=== PATIENT | male | born 1975 | race Caucasian/White ===

== ENCOUNTER 2017-12-05 07:53 | Emergency (ER) | payer BC, MEDICAID ==
[2017-12-05] MEDS ORDERED: ASPIRIN 325 MG TABLET PO ONE (08:20)
--- NOTE | 2017-12-05 08:31 | Emergency Department Record ---
History of Present Illness - General Chief Complaint: Shortness of breath Stated Complaint: SOB Time Seen by Provider: 12/05/17 08:16 Source: Patient Mode of Arrival: EMS Limitations: No limitations - History of Present Illness Initial Comments: The patient is here due to dyspnea that occurred in the shower this AM. He was getting ready to go to his PCP's office for a stress test at 8am when the ALLEN started. He did get mildly lightheaded while in the shower but had no chest pain or discomfort. The symptoms did wax and wane so the patient called 911. After the ambulance got there he felt better and initially refused. As they were driving away he changed his mind and asked to be taken to the [facility]. The patient was there yesterday for the same exact thing and refused hospital admission because he did not want to stay in the hospital and get the flu. EMS stated because we were closer they were not able to go to [place] per Protocol. Presently the patient is symptoms free and denies any pain, discomfort or SOB. MD Complaint: Shortness of breath Onset/Timin -: Days(s) - Related Data Home Medications Medication Instructions Recorded Confirmed Last Taken Lisinopril 10 mg PO DAILY 12/05/17 12/05/17 12/05/17 06:30 Loratadine 10 mg 12/05/17 12/05/17 06:30 Allergies Allergy/AdvReac Type Severity Reaction Status Date / Time No Known Drug Allergies Allergy Verified 12/05/17 08:45 Travel Screening - Travel/Exposure Within Last 30 Days Have you traveled within the last 30 days?: No - Travel/Exposure Within Last Year Have you traveled outside the [place] in the last year?: No - Additonal Travel Details Have you been exposed to anyone with a communicable illness?: No Review of Systems Constitutional: Denies: Chills, Fever Eyes: Denies: Eye discharge ENT: Denies: Congestion Respiratory: Denies: Cough, Dyspnea Past Medical History - SOCIAL HISTORY Smoking Status: Current every day smoker - RESPIRATORY Hx Respiratory Disorders: No - CARDIOVASCULAR Hx Cardio Disorders: Yes Hx Hypertension: Yes Comment:: tariq-glenna in september 2017 - NEURO Hx Neuro Disorders: No - GI Hx GI Disorders: No - Hx Genitourinary Disorders: No - ENDOCRINE Hx Endocrine Disorders: No - MUSCULOSKELETAL Hx Musculoskeletal Disorders: Yes Hx Back Injury: Yes (oct 01 2016) - PSYCH Hx Psych Problems: No - HEMATOLOGY/ONCOLOGY Hx Hematology/Oncology Disorders: No Family Medical History Any Significant Family History?: Yes Hx Cancer: Father, Mother Hx Diabetes: Father, Mother Hx Heart Disease: Father, Mother, Grandparents Hx Kidney Disease: Grandparents Physical Exam - General General Appearance: Alert, Oriented x3, Cooperative, No acute distress - Head Head exam: Atraumatic, Normocephalic, Normal inspection - Eye Eye exam: Normal appearance, PERRL - ENT Throat exam: Normal inspection. negative: Tonsillar erythema, Tonsillar exudate - Neck Neck exam: Normal inspection, Full ROM. negative: Tenderness - Respiratory Respiratory exam: Normal lung sounds bilaterally. negative: Respiratory distress - Cardiovascular Cardiovascular Exam: Regular rate, Normal rhythm, Normal heart sounds - GI/Abdominal GI/Abdominal exam: Soft, Normal bowel sounds. negative: Tenderness - Extremities Extremities exam: Normal inspection, Full ROM, Normal capillary refill. negative: Tenderness - Neurological Neurological exam: Alert, Normal gait. negative: Abnormal gait, Motor sensory deficit Course Vital Signs 12/05/17 08:06 Temperature 98.2 F Pulse Rate 95 H Respiratory 18 Rate Blood Pressure 151/92 Pulse Ox 99 - Reevaluation(s) Reevaluation #1: Records from [facility] were reviewed: The patient had neg cardiac enzymes, a normal EKG, neg D-dimer and a normal CXR. 12/05/17 08:45 Reevaluation #2: The patient is doing very well at this time. He is pain free and has no ALLEN. I did consult with Dr. Sabillon ([facility]) and he is willing to do a EST on the patient later this morning or early this afternoon. 12/05/17 09:35 Reevaluation #3: The patient went to 9 METS on his EST and it was read as normal by Dr. Sabillon. He did have ALLEN but no CP or EKG changes. 12/05/17 11:45 Reevaluation #4: I did explain to the patient that his workup is normal and that the EST was WNL' s. Even so because there is no clear cause for the dyspnea I still did recommend hospital admission to [facility] for a cardiac echo and consult with the EP team. The patient is refusing that plan. He understands the risks of refusing are that he could go home and have an AK, stroke, be disabled and even . The patient understands and accepts the risks and presently has proper decision making capacity. He is instructed to return to the ER at ANY time for recheck or any worsening or new symptoms. 12/05/17 12:06 Medical Decision Making - Data Complexity MDM Data: EKG Ordered and/or Reviewed - Lab Data Result diagrams: 12/05/17 08:20 12/05/17 08:20 - EKG Data -: EKG Interpreted by Me EKG: No Acute Changes, Normal EKG Disposition Disposition: Discharge Clinical Impression: Dyspnea Qualifiers: Dyspnea type: unspecified Qualified Code(s): R06.00 - Dyspnea, unspecified Disposition: Home, Self-Care Condition: (2) Stable Instructions: Dyspnea (ED) Additional Instructions: Please see Dr. Zhang and Dr. Raphael NAVARRO. Please continue your regular medicines and return to the ER for any worsening symptoms. Forms: Patient Portal Access Time of Disposition: 12:06 Quality - Quality Measures Quality Measures: N/A - Blood Pressure Screening View Details: Yes Does Patient Have Any of the Following: No Blood Pressure Classification: Hypertensive Reading Systolic Measurement: 151 Diastolic Measurement: 92 Screening for High Blood Pressure: < First Hypertensive BP, F/U Documented > [ G8950] First Hypertensive Follow-up Interventions: Referral to alternative/primary care provider.
[2017-12-05 08:37] LABS: BASO % 0.2 % (0-6); EOS % 2.1 % (0-6); GRAN % 60.7 % (47-80); HEMATOCRIT 45.8 % (42.0-52.0); HEMOGLOBIN 15.7 gm/dl (14.0-18.0); LYMPH % 28.9 % (16-45); MEAN CELL VOLUME 85.6 fl (81-97); MEAN CORPUSCULAR HEMOGLOBIN 29.3 pg (27-33); MEAN CORPUSCULAR HGB CONC 34.3 g/dl (32-36); MEAN PLATELET VOLUME 9.9 fl (7.4-10.4); MONO % 8.1 % (0-9); PLATELET COUNT 247 K/uL (130-400); RED BLOOD COUNT 5.35 M/uL (4.40-5.70); RED CELL DISTRIBUTION WIDTH 13.3 % (11.5-14.5); WHITE BLOOD COUNT W/O DIFF 5.8 K/uL (4.2-12.2)
[2017-12-05 08:54] LABS: CKMB 1.5 ng/mL (<6.73)
[2017-12-05 08:56] LABS: BLOOD UREA NITROGEN 12 mg/dL (6-20); CREATINE PHOSPHOKINASE 103 U/L (39-308); CREATININE 0.8 mg/dL (0.7-1.2); EST GLOMERULAR FILTRATION RATE > 60 mL/min; GLUCOSE,RANDOM 118 mg/dL (74-109)
[2017-12-05 09:01] LABS: THYROID STIMULATING HORMONE 1.38 uIU/mL (0.270-4.20)
[2017-12-05 11:37] LABS: CKMB 1.4 ng/mL (<6.73)
--- NOTE | 2017-12-05 15:51 | Stress Test Report ---
DATE OF TEST: 12/05/17 ORDERING PHYSICIAN: MARQUISE NEGRETE E.D. PHYSICIAN. INDICATION: DYSPNEA. BASELINE EKG: Sinus rhythm. Nonspecific ST/T wave changes. NH interval 149 milliseconds. QRS 105 milliseconds. QT corrected 402 milliseconds. Resting heart rate 74. Resting blood pressure 133/86. DESCRIPTION: Patient exercised on a motorized treadmill for 7 minutes and 46 seconds achieving a peak heart rate of 179 beats per minute, which was greater than 85% of the maximum age-predicted heart rate. Peak blood pressure was 176/ 90. Continuous ECG monitoring revealed no EKG changes that met diagnostic criteria for ischemia. There was significant artifact during most of the exercise tracings but immediate post recovery showed no ST/T wave changes suggestive of ischemia. There were no significant ventricular or atrial arrhythmias identified. The patient's only complain during exercise was dyspnea. He had no chest discomfort. IMPRESSION: 1. NEGATIVE EXERCISE STRESS TEST TO APPROXIMATELY 9 METS. 2. NO CHEST DISCOMFORT. 3. POSITIVE FOR SHORTNESS OF BREATH LIMITING EXERCISE. JOB NUMBER: [id number] MTDD
== END 2017-12-05 12:20 | disposition home or self-care (01) ==
LOC: ER 07:53
DX: R06.00 Dyspnea, unspecified (principal); R42 Dizziness and giddiness; I10 Essential (primary) hypertension; I48.91 Unspecified atrial fibrillation; F17.210 Nicotine dependence, cigarettes, uncomplicated
CPT/HCPCS: 80048; 82550; 82553; 84443; 84484; 85025; 93005; 93010; 93017; 99284

== ENCOUNTER 2017-12-06 09:12 | Observation (INO) | payer MEDICAID ==
--- NOTE | 2017-12-06 09:28 | Emergency Department Record ---
History of Present Illness - General Chief Complaint: Shortness of breath Stated Complaint: ALLEN Time Seen by Provider: 12/06/17 09:23 Source: Patient Mode of Arrival: EMS Limitations: No limitations - History of Present Illness Initial Comments: The patient is here due to intermittent SOB for 3-4 days. The patient states he was just sitting at home at 7:30 am and suddenly felt SOB. He did have very mild palpitations at the time and very mild chest discomfort. The patient has been to the ER the last 2 days for the same thing. He was here at [facility] yesterday and did have a EST to 9 mets that was neg. He has had a hx of Afib in the past and this is similar to that episode. MD Complaint: Shortness of breath Onset/Timin -: Days(s) Associated Symptoms: Denies other symptoms Treatments Prior to Arrival: None - Related Data Home Oxygen Therapy: No Home Medications Medication Instructions Recorded Confirmed Last Taken Trazodone HCl 50 mg PO QHS 12/06/17 12/06/17 12/05/17 Allergies Allergy/AdvReac Type Severity Reaction Status Date / Time No Known Drug Allergies Allergy Verified 12/06/17 09:16 Travel Screening - Travel/Exposure Within Last 30 Days Have you traveled within the last 30 days?: No Review of Systems Constitutional: Denies: Chills, Fever Eyes: Denies: Eye discharge ENT: Denies: Congestion Respiratory: Denies: Cough, Dyspnea Past Medical History - SOCIAL HISTORY Smoking Status: Current every day smoker Alcohol Use: Occasional Alcohol Use Comment: 1-2 beers/night Drug Use: None - RESPIRATORY Hx Respiratory Disorders: No - CARDIOVASCULAR Hx Cardio Disorders: Yes Hx Hypertension: Yes Comment:: tariq-fib in september 2017 - NEURO Hx Neuro Disorders: No - GI Hx GI Disorders: No - Hx Genitourinary Disorders: No - ENDOCRINE Hx Endocrine Disorders: No - MUSCULOSKELETAL Hx Musculoskeletal Disorders: Yes Hx Back Injury: Yes (oct 01 2016) - PSYCH Hx Psych Problems: No - HEMATOLOGY/ONCOLOGY Hx Hematology/Oncology Disorders: No Family Medical History Any Significant Family History?: Yes Hx Cancer: Father, Mother Hx Diabetes: Father, Mother Hx Heart Disease: Father, Mother, Grandparents Hx Kidney Disease: Grandparents Physical Exam - General General Appearance: Alert, Oriented x3, Cooperative, No acute distress - Head Head exam: Atraumatic, Normocephalic, Normal inspection - Eye Eye exam: Normal appearance, PERRL - ENT Throat exam: Normal inspection. negative: Tonsillar erythema, Tonsillar exudate - Neck Neck exam: Normal inspection, Full ROM. negative: Tenderness - Respiratory Respiratory exam: Normal lung sounds bilaterally. negative: Respiratory distress - Cardiovascular Cardiovascular Exam: Regular rate, Normal rhythm, Normal heart sounds - GI/Abdominal GI/Abdominal exam: Soft, Normal bowel sounds. negative: Tenderness - Extremities Extremities exam: Normal inspection, Full ROM, Normal capillary refill. negative: Tenderness - Neurological Neurological exam: Alert, Normal gait. negative: Abnormal gait, Motor sensory deficit Course Vital Signs 12/06/17 09:13 Temperature 97.9 F Pulse Rate 84 Respiratory 18 Rate Blood Pressure 149/104 Pulse Ox 98 - Reevaluation(s) Reevaluation #1: The patient is doing very well at this time. He has had no further episodes of SOB or any CP. Due to the frequency of these episodes I do think the patient will need to be monitored overnight. I did discuss the case with Dr. Hood at [facility] and he does agree with the plan but believes the patient can stay here at [facility]. I then did discuss the case with Dr. Royal and he does agree to the admission. 12/06/17 11:18 Medical Decision Making - Data Complexity MDM Data: Labs Ordered and/or Reviewed, X-Ray Ordered and/or Reviewed, EKG Ordered and/or Reviewed - Lab Data Result diagrams: 12/06/17 09:31 12/06/17 09:31 - EKG Data -: EKG Interpreted by Al EKG: No Acute Changes, Unchanged From Previous - Radiology Data Radiology results: Report reviewed (CXR: Neg.) Disposition Disposition: Admit Clinical Impression: Dyspnea Qualifiers: Dyspnea type: unspecified Qualified Code(s): R06.00 - Dyspnea, unspecified Disposition: Still a Patient at [facility] Decision to Admit: Admit from ER Decision to Admit Date: 12/06/17 Decision to Admit Time: 11:20 Accepting Physician: Lele Time Discussed w/Accepting Physician: 11:20 Condition: (2) Stable Time of Disposition: 11:20 Quality - Quality Measures Quality Measures: N/A - Blood Pressure Screening View Details: Yes Does Patient Have Any of the Following: Active Dx of HTN Blood Pressure Classification: Hypertensive Reading Systolic Measurement: 142 Diastolic Measurement: 98 Screening for High Blood Pressure: Patient Exclusion, Hx of HTN [G9744]
[2017-12-06 09:36] LABS: BASO % 0.3 % (0-6); EOS % 1.8 % (0-6); GRAN % 58.6 % (47-80); HEMATOCRIT 47.6 % (42.0-52.0); HEMOGLOBIN 16.5 gm/dl (14.0-18.0); LYMPH % 32.4 % (16-45); MEAN CELL VOLUME 85.5 fl (81-97); MEAN CORPUSCULAR HEMOGLOBIN 29.6 pg (27-33); MEAN CORPUSCULAR HGB CONC 34.7 g/dl (32-36); MEAN PLATELET VOLUME 9.2 fl (7.4-10.4); MONO % 6.9 % (0-9); PLATELET COUNT 287 K/uL (130-400); RED BLOOD COUNT 5.57 M/uL (4.40-5.70); RED CELL DISTRIBUTION WIDTH 13.5 % (11.5-14.5)
[2017-12-06 10:02] LABS: INR 1.1; PARTIAL THROMBOPLASTIN TIME 26.4 SECONDS (24.5-39.1); PROTHROMBIN TIME (PATIENT) 11.4 SECONDS (9.5-12.1)
[2017-12-06 10:09] LABS: BLOOD UREA NITROGEN 18 mg/dL (6-20); CREATININE 0.7 mg/dL (0.7-1.2); EST GLOMERULAR FILTRATION RATE > 60 mL/min
[2017-12-06 10:11] LABS: GLUCOSE,RANDOM 106 mg/dL (74-109)
[2017-12-06 10:14] LABS: CREATINE PHOSPHOKINASE 98 U/L (39-308)
[2017-12-06 10:16] LABS: CKMB 1.5 ng/mL (<6.73)
[2017-12-06] MEDS ORDERED: ASPIRIN 325 MG TABLET PO ONE (11:43)
[2017-12-06] MEDS ORDERED: HYDROCODONE/APAP 5/325MG TABLET PO SCH (14:23)
[2017-12-06] MEDS ORDERED: CYCLOBENZAPRINE HCL 5 MG PO SCH (14:23)
--- NOTE | 2017-12-06 14:31 | History & Physical ---
History of Present Illness - Date of Service Date of Service for History & Physical: 12/06/17 - History of Present Illness Admitting Diagnosis: 1. Acute Dyspnea with Palpitations. History of Present Illness: Mr. Pedersen is a 42 y/o male here with vague complaint of chest discomfort, shortness of breath and palpitations. The patient has presented to [facility] ED twice in the past 2 days with the same complaint and once to [facility]. On evaluation in the ED yesterday the patient had stress test which was negative and all las were within normal limits. The patient has a history of atrial fibrillation and was apparently on Lopressor but is not on any beta- blockers at this time and has not been in A fib. The patient reports that most of his symptoms have been in the morning but then resolve spontaneously. The patient has been seen by a manager [employer] and there is plans for a holter monitor to be placed. On evaluation of the patient this afternoon he is asking if he could go outside for a smoke. I informed the patient that is against hospital policy to smoke on hospital property in addition to it not being good for his health. He is adamant about smoking while being admitted. He has no symptoms at this time and there are no changes on monitor. Travel Screening - Travel/Exposure Within Last 30 Days Have you traveled within the last 30 days?: No - Travel/Exposure Within Last Year Have you traveled outside the [place] in the last year?: No - Additonal Travel Details Have you been exposed to anyone with a communicable illness?: No - Travel Symptoms Symptom Screening: None Review of Systems Constitutional: Denies: Chills, Fever Eyes: Denies: Eye discharge ENT: Denies: Congestion Respiratory: Denies: Cough, Dyspnea Past Medical History - SOCIAL HISTORY Smoking Status: Current every day smoker Alcohol Use: Occasional Alcohol Use Comment: 1-2 beers/night Drug Use: None - RESPIRATORY Hx Respiratory Disorders: No - CARDIOVASCULAR Hx Cardio Disorders: Yes Hx Hypertension: Yes Comment:: a-fib in september 2017 - NEURO Hx Neuro Disorders: No - GI Hx GI Disorders: No - Hx Genitourinary Disorders: No - ENDOCRINE Hx Endocrine Disorders: No - MUSCULOSKELETAL Hx Musculoskeletal Disorders: Yes Hx Back Injury: Yes (oct 01 2016) - PSYCH Hx Psych Problems: No - HEMATOLOGY/ONCOLOGY Hx Hematology/Oncology Disorders: No Family Medical History Any Significant Family History?: Yes Hx Cancer: Father, Mother Hx Diabetes: Father, Mother Hx Heart Disease: Father, Mother, Grandparents Hx Kidney Disease: Grandparents H&P Meds/Allergies - Allergies Allergies: Allergies Allergy/AdvReac Type Severity Reaction Status Date / Time No Known Drug Allergies Allergy Verified 12/06/17 09:16 - Home Medications Home Medications Medication Instructions Recorded Confirmed Last Taken Trazodone HCl 50 mg PO QHS 12/06/17 12/06/17 12/05/17 - Active Medications Active Medications: Current Medications Hydrocodone Bitart/Acetaminophen ([place] 5mg/325mg) each PO ASDIR [facility] Aspirin (Ecotrin (Ec)) 325 mg PO DAILY [facility] Lisinopril (Zestril) 10 mg PO DAILY [facility] Non-Formulary Medication (Cyclobenzaprine Hcl [Cyclobenzaprine Hcl]) 5 mg PO ASDIR [facility] Non-Formulary Medication (Loratadine [Loratadine]) 10 mg PO DAILY [facility] Non-Formulary Medication (Omeprazole [Omeprazole]) 20 mg PO DAILY [facility] Trazodone HCl (Desyrel) 50 mg PO QHS [facility] Physical Exam - Vital Signs Vital Signs: Vital Signs - Last 24 Hrs Temp Pulse Pulse Resp BP BP Pulse Ox 12/06/17 12:21 98 F 84 20 148/89 98 12/06/17 12:13 98.2 F 91 H 20 142/98 97 - General General Appearance: Alert, Oriented x3, Cooperative, No acute distress Limitations: No limitations - Head Head exam: Atraumatic, Normocephalic, Normal inspection - Eye Eye exam: Normal appearance, PERRL - ENT Throat exam: Normal inspection. negative: Tonsillar erythema, Tonsillar exudate - Neck Neck exam: Normal inspection, Full ROM. negative: Tenderness - Respiratory Respiratory exam: Normal lung sounds bilaterally. negative: Respiratory distress - Cardiovascular Cardiovascular Exam: Regular rate, Normal rhythm, Normal heart sounds - GI/Abdominal GI/Abdominal exam: Soft, Normal bowel sounds. negative: Tenderness - Extremities Extremities exam: Normal inspection, Full ROM, Normal capillary refill. negative: Tenderness - Neurological Neurological exam: Alert, Normal gait. negative: Abnormal gait, Motor sensory deficit Results - Labs Result Diagrams: 12/06/17 09:31 12/06/17 09:31 VTE H&P Assessment - Risk for VTE Risk for VTE: No Risk Level: Very Low Risk Assessment Date: 12/06/17 Risk Assessment Time: 20:49 VTE Orders Placed or Will Be Placed: No VTE Reason for No Prophylaxis: Not Indicated Plan - Detailed Diagnosis and Plan (1) Dyspnea Status: Acute Qualifiers: Dyspnea type: unspecified Qualified Code(s): R06.00 - Dyspnea, unspecified Base Code: R06.00 - DYSPNEA, UNSPECIFIED Comment: 12/06 - Intermittent dyspnea, no evidence of cardiac arrhythmia, no chest pain. Symptoms likely due to anxiety. - ECG negative for acute changes, troponins negative, stress test negative, CXR negative. - Home holter monitor arranged. Patient advised to return to ED if there is chest pain, shortness of breath or palpitations. Patient to return device within 24 hours. - Outpatient cardiology workup is recommended. - Strongly advised the patient against smoking. (2) Anxiety Status: Acute Base Code: F41.9 - ANXIETY DISORDER, UNSPECIFIED Comment: 12/06 - patient has anxiety and has recently been started on Vistaril by PCP. - Disposition D/C home with holter monitor. To return in 24 hours. Patient wants to smoke while in hospital but we have advised that it is against hospital policy to do so. He would prefer to go home with the monitor.
--- NOTE | 2017-12-06 21:04 | Discharge Summary ---
Providers Discharge Summary Date: 12/06/17 Date of admission: 12/06/17 12:11 Attending physician: GREGORY FAUST Primary care physician: HORTENCIA RIBEIRO M.D. Physical Exam - Vital Signs Vital Signs: Vital Signs - Last 24 Hrs Temp Pulse Pulse Resp BP BP Pulse Ox 12/06/17 12:21 98 F 84 20 148/89 98 12/06/17 12:13 98.2 F 91 H 20 142/98 97 - General General Appearance: Alert, Oriented x3, Cooperative, No acute distress Limitations: No limitations - Head Head exam: Atraumatic, Normocephalic, Normal inspection - Eye Eye exam: Normal appearance, PERRL - ENT Throat exam: Normal inspection. negative: Tonsillar erythema, Tonsillar exudate - Neck Neck exam: Normal inspection, Full ROM. negative: Tenderness - Respiratory Respiratory exam: Normal lung sounds bilaterally. negative: Respiratory distress - Cardiovascular Cardiovascular Exam: Regular rate, Normal rhythm, Normal heart sounds - GI/Abdominal GI/Abdominal exam: Soft, Normal bowel sounds. negative: Tenderness - Extremities Extremities exam: Normal inspection, Full ROM, Normal capillary refill. negative: Tenderness - Neurological Neurological exam: Alert, Normal gait. negative: Abnormal gait, Motor sensory deficit Hospitalization - Hospitalization Admission Diagnosis: 1. Acute Dyspnea with Palpitations. - Problem List/Discharge Diagnosis (1) Dyspnea Status: Acute Discharge Diagnosis: Dyspnea type: unspecified Qualified Code(s): R06.00 - Dyspnea, unspecified Base Code: R06.00 - DYSPNEA, UNSPECIFIED Comment: / - Intermittent dyspnea, no evidence of cardiac arrhythmia, no chest pain. Symptoms likely due to anxiety. - ECG negative for acute changes, troponins negative, stress test negative, CXR negative. - Home holter monitor arranged. Patient advised to return to ED if there is chest pain, shortness of breath or palpitations. Patient to return device within 24 hours. - Outpatient cardiology workup is recommended. - Strongly advised the patient against smoking. (2) Anxiety Status: Acute Base Code: F41.9 - ANXIETY DISORDER, UNSPECIFIED Comment: 3/ - patient has anxiety and has recently been started on Vistaril by PCP. - Disposition D/C home with holter monitor. To return in 24 hours. Patient wants to smoke while in hospital but we have advised that it is against hospital policy to do so. He would prefer to go home with the monitor. - Hospitalization Course Disposition: Home, Self-Care Hospital Course: Mr. Pedersen is a 42 y/o male here with vague complaint of chest discomfort, shortness of breath and palpitations. The patient has presented to [facility] ED twice in the past 2 days with the same complaint and once to [facility]. On evaluation in the ED yesterday the patient had stress test which was negative and all las were within normal limits. The patient has a history of atrial fibrillation and was apparently on Lopressor but is not on any beta- blockers at this time and has not been in A fib. The patient reports that most of his symptoms have been in the morning but then resolve spontaneously. The patient has been seen by a [employer] consultant and there is plans for a holter monitor to be placed. On evaluation of the patient this afternoon he is asking if he could go outside for a smoke. I informed the patient that is against hospital policy to smoke on hospital property in addition to it not being good for his health. He is adamant about smoking while being admitted. He has no symptoms at this time and there are no changes on monitor. Procedures: Cardiology Procedures 12/06/17 13:36 Holter Monitor NOW Condition at Discharge: (2) Stable Discharge Medications - Discharge Medications Home Medications: Ambulatory Orders Cyclobenzaprine HCl 5 mg PO ASDIR #90 12/25/16 [Last Taken 12/03/17] Hydrocodone/Acetaminophen [Hydrocodon-Acetaminophen 5-325] 10 mg PO ASDIR #30 [Last Taken 12/01/17] Omeprazole 20 mg PO DAILY #30 12/25/16 [Last Taken 12/05/17 06:30] Lisinopril 10 mg PO DAILY 12/05/17 [Last Taken 12/06/17] Loratadine 10 mg PO DAILY 12/05/17 [Last Taken 12/05/17 06:30] Trazodone HCl 50 mg PO QHS 12/06/17 [Last Taken 12/05/17] Discharge Plan - Discharge Instructions Activity at Discharge: Resume Usual Activities As Tolerated Diet at Discharge: Regular Diet Instructions: Dyspnea (ED) Additional Instructions: Return to drop off Holter monitor 12/07/17 as instructed by respiratory Quality Measures - Quality Measures Quality Measures: Documentation of Current Medications in Medical Record, Screening for High Blood Pressure and F/U Documented - Current Medications Quality Measure: Measure #130: Documentation of Current Medications Documentation of Current Medications: <Current Medications Documented/Reviewed> [G8427] - Blood Pressure Screening Quality Measure: Screening for High Blood Pressure and Follow-Up Documented Does Patient Have Any of the Following: No Blood Pressure Classification: Hypertensive Reading Systolic Measurement: 142 Diastolic Measurement: 98 Screening for High Blood Pressure: < Pre-Hypertensive BP, F/U Documented > [ G8950] Pre-Hypertensive Follow-up Interventions: Follow-up with rescreen every year., Lifestyle modifications. Lifestyle Modification: Weight Reduction, Dietary Sodium Restriction - Elder Abuse Suspicion Index EASI Reference Information: Anna LONGORIA, Nilson C, Janette D, Alfonzo Mendoza.Development and validation of a tool to assist physicians identification of elder abuse: The Elder Abuse Suspicion Index (EASI ). Journal of Elder Abuse and Neglect, 2008; 20 (3): 276-300.
[2017-12-06] MEDS ORDERED: TRAZODONE 50 MG TABLET PO SCH (22:00)
[2017-12-07] MEDS ORDERED: LORATADINE 10 MG PO SCH (10:00)
[2017-12-07] MEDS ORDERED: LISINOPRIL 10 MG TABLET PO SCH (10:00)
[2017-12-07] MEDS ORDERED: ASPIRIN 325 MG TAB ENTERIC-COATED PO SCH (10:00)
[2017-12-07] MEDS ORDERED: Non-Formulary MISC (Omeprazole [Omeprazole] 20 MG) PO SCH (10:00)
--- NOTE | 2017-12-08 07:14 | RADIOLOGY REPORT ---
EXAM: CHEST, TWO VIEWS HISTORY: DIFFICULTY BREATHING. TECHNIQUE: Frontal and lateral views of the chest performed. FINDINGS: The heart size is normal. The lung waterman are clear. The osseous structures are normal. IMPRESSION: NEGATIVE CHEST EXAMINATION. JOB NUMBER: [id number] MTDD
--- NOTE | 2017-12-09 11:30 | Holter Monitor Report ---
DATE: 12/06/2017 A 3-channel Holter monitor was performed for 24 hours. During this period of monitoring, 3% of the time the patient did have a heart rate greater than 120 beats per minute albeit the fact that it was sinus tachycardia. He had no pauses exceeding 2 seconds. He had very occasional ventricular ectopic beats, less than 10. He had less than 19 supraventricular beats. He had no episodes of SVT. There was no significant ST or T depression. The patient's diary was correlated with his Holter monitor. At 7:02 a.m. on Friday, his heart rate was 133 beats per minute, clearly sinus tachycardia. The patient states that he woke up at 6:50 a.m., felt nothing. At 8:10, he walked up the stairs and felt a little short of breath but this was 1 hour after he had sinus tachycardia. At 9:48 on Friday, he did have a heart rate again of 145 beats per minute with sinus tachycardia. According to his diary, he went for a walk around the block at 9:40 but at 9:50 he was sitting in his chair a little out of breathing, could not stop coughing, and at that time he was noted to be in sinus tachycardia. He was still somewhat tachycardic at 10:03 a.m. at a heart rate of 121 beats per minute. By 10:08, he still had a heart rate of 150 beats per minute being sinus tachycardia. Whether or not he was coughing or in any distress at that time is not well elucidated on the patient's diary. Therefore, the patient does have periods of sinus tachycardia. Some correlate with periods of shortness of breath. Others there is no correlation at all. No other malignant arrhythmias and no long pauses were appreciated. ENE
== END 2017-12-06 14:30 | disposition home or self-care (01) ==
LOC: ER 09:12 → MEDSURG 12:11
PROVIDERS: ADMIT Internal Medicine; ATTEND Internal Medicine
DX: R00.2 Palpitations (principal); F41.9 Anxiety disorder, unspecified; F17.210 Nicotine dependence, cigarettes, uncomplicated; I10 Essential (primary) hypertension; I48.91 Unspecified atrial fibrillation; Z79.01 Long term (current) use of anticoagulants
CPT/HCPCS: 99285 ×2; 82550; 85025; 85730; 85610; 82553; 80048; 84484; 71046; 93005; 93225; 93226; 93010; G0378; 99236

== ENCOUNTER 2019-01-04 08:36 | Emergency (ER) | payer MEDICAID ==
[2019-01-04] MEDS ORDERED: ASPIRIN 81 MG CHEWABLE TABLET PO ONE (09:04)
--- NOTE | 2019-01-04 09:09 | Emergency Department Record ---
History of Present Illness - General Chief Complaint: Chest Pain Stated Complaint: CHEST PAIN Time Seen by Provider: 01/04/19 08:52 Source: Patient Mode of Arrival: Ambulatory Limitations: No limitations - History of Present Illness Initial Comments: pt was driving when he suddenly felt hot and his palms became sweaty. he had no other symptoms but it felt like when he had afib Onset/Timin -: Minutes(s) Onset: During exertion Pain Location: Substernal Severity: Moderate Severity scale (1-10): 1 Quality: Aching Consistency: Other Improves With: Nothing Anginal Symptoms: Diaphoresis - Related Data Home Medications Medication Instructions Recorded Confirmed Last Taken Amlodipine Besylate [Norvasc] 10 mg PO DAILY 01/04/19 01/04/19 1 Day Ago ~01/03/19 Apixaban [Eliquis] 5 mg PO BID 01/04/19 01/04/19 1 Day Ago ~01/03/19 Cetirizine HCl 10 mg PO DAILY 01/04/19 01/04/19 1 Day Ago ~01/03/19 Duloxetine HCl [Cymbalta] 60 mg PO DAILY 01/04/19 01/04/19 1 Day Ago ~01/03/19 Hydroxyzine HCl 10 mg PO QPM 01/04/19 01/04/19 1 Day Ago ~01/03/19 Metoprolol Tartrate [Lopressor] 50 mg PO BID 01/04/19 01/04/19 1 Day Ago ~01/03/19 Sod Chlor,Bicarb/Squeez Bottle [Ra 1 each NS DAILY 01/04/19 01/04/19 1 Day Ago Nasal Relief Sinus Wash Kit] ~01/03/19 Allergies Allergy/AdvReac Type Severity Reaction Status Date / Time No Known Drug Allergies Allergy Verified 01/04/19 08:45 Travel Screening - Travel/Exposure Within Last 30 Days Have you traveled within the last 30 days?: No - Travel/Exposure Within Last Year Have you traveled outside the [place] in the last year?: No - Additonal Travel Details Have you been exposed to anyone with a communicable illness?: No - Travel Symptoms Symptom Screening: None Review of Systems Reviewed: No additional complaints except as noted below Constitutional: Reports: As per HPI. Denies: Chills, Fever, Malaise, Night sweats, Weakness, Weight change Eyes: Reports: As per HPI. Denies: Eye discharge, Eye pain, Photophobia, Vision change ENT: Reports: As per HPI. Denies: Congestion, Dental pain, Ear pain, Epistaxis , Hearing loss, Throat pain Respiratory: Reports: As per HPI. Denies: Cough, Dyspnea, Hemoptysis, Stridor, Wheezes Cardiovascular: Reports: As per HPI. Denies: Arrhythmia, Chest pain, Dyspnea on exertion, Edema, Murmurs, Orthopnea, Palpitations, Paroxysmal nocturnal dyspnea, Rheumatic Fever, Syncope Endocrine: Reports: As per HPI. Denies: Fatigue, Heat or cold intolerance, Polydipsia, Polyuria Gastrointestinal: Reports: As per HPI. Denies: Abdominal pain, Constipation, Diarrhea, Hematemesis, Hematochezia, Melena, Nausea, Vomiting Genitourinary: Reports: As per HPI. Denies: Dysuria, Frequency, Hematuria, Incontinence, Retention, Testicular pain, Testicular mass, Urgency Musculoskeletal: Reports: As per HPI. Denies: Arthralgia, Back pain, Gout, Joint swelling, Myalgia, Neck pain Skin: Reports: As per HPI. Denies: Bruising, Change in color, Change in hair/ nails, Lesions, Pruritus, Rash Neurological: Reports: As per HPI. Denies: Abnormal gait, Confusion, Headache, Numbness, Paresthesias, Seizure, Tingling, Tremors, Vertigo, Weakness Psychiatric: Reports: As per HPI. Denies: Anxiety, Auditory hallucinations, Depression, Homicidal thoughts, Suicidal thoughts, Visual hallucinations Hematological/Lymphatic: Reports: As per HPI. Denies: Anemia, Blood Clots, Easy bleeding, Easy bruising, Swollen glands Past Medical History - SOCIAL HISTORY Smoking Status: Current every day smoker Alcohol Use: Occasional Drug Use: None - RESPIRATORY Hx Respiratory Disorders: No - CARDIOVASCULAR Hx Cardio Disorders: Yes Hx Hypertension: Yes Comment:: a-fib in september 2017 - NEURO Hx Neuro Disorders: No - GI Hx GI Disorders: No - Hx Genitourinary Disorders: No - ENDOCRINE Hx Endocrine Disorders: No - MUSCULOSKELETAL Hx Musculoskeletal Disorders: Yes Hx Back Injury: Yes (oct 01 2016) - PSYCH Hx Psych Problems: No - HEMATOLOGY/ONCOLOGY Hx Hematology/Oncology Disorders: No Family Medical History Any Significant Family History?: Yes Hx Cancer: Father, Mother Hx Diabetes: Father, Mother Hx Heart Disease: Father, Mother, Grandparents Hx Kidney Disease: Grandparents Physical Exam - General General Appearance: Alert, Oriented x3, Cooperative, Mild distress - Head Head exam: Normal inspection - Eye Eye exam: Normal appearance, PERRL, EOMI Pupils: Normal accommodation - ENT ENT exam: Normal exam, Mucous membranes moist, Normal external ear exam, Normal orophraynx Ear exam: Normal external inspection. negative: External canal tenderness Nasal Exam: Normal inspection. negative: Discharge, Sinus tenderness Mouth exam: Normal external inspection, Tongue normal Teeth exam: Normal inspection. negative: Dental caries Throat exam: Normal inspection. negative: Tonsillar erythema, Tonsillar exudate - Neck Neck exam: Normal inspection, Full ROM. negative: Tenderness - Respiratory Respiratory exam: Normal lung sounds bilaterally. negative: Respiratory distress - Cardiovascular Cardiovascular Exam: Regular rate, Normal rhythm, Normal heart sounds - GI/Abdominal GI/Abdominal exam: Soft, Normal bowel sounds. negative: Tenderness - Rectal Rectal exam: Deferred - exam: Deferred - Extremities Extremities exam: Normal inspection, Full ROM, Normal capillary refill. negative: Tenderness - Back Back exam: Reports: Normal inspection, Full ROM. Denies: Muscle spasm, Rash noted, Tenderness - Neurological Neurological exam: Alert, CN II-XII intact, Normal gait, Oriented X3 - Psychiatric Psychiatric exam: Normal affect, Normal mood - Skin Skin exam: Dry, Intact, Normal color, Rash, Warm Distribution of rash: Generalized (exzema) Course Vital Signs 01/04/19 08:38 Temperature 97.4 F L Pulse Rate 99 H Respiratory 20 Rate Blood Pressure 155/92 Pulse Ox 98 - Reevaluation(s) Reevaluation #1: 01/04/19 13:08 pts 2nd trop is neg Medical Decision Making - Lab Data Result diagrams: 01/04/19 09:25 01/04/19 09:25 Disposition Disposition: Discharge Clinical Impression: Flushing, Intermittent palpitations Disposition: Home, Self-Care Condition: (1) Good Instructions: Heart Palpitations (ED) Additional Instructions: follow up with assistant inventory manager. return sooner if worse Forms: Patient Portal Access Quality - Quality Measures Quality Measures: N/A - Blood Pressure Screening Does Patient Have Any of the Following: Active Dx of HTN Blood Pressure Classification: Hypertensive Reading Systolic Measurement: 155 Diastolic Measurement: 92 Screening for High Blood Pressure: Patient Exclusion, Hx of HTN [G9744]
[2019-01-04 09:32] LABS: BASO % 0.5 % (0-6); EOS % 5.6 % (0-6); GRAN % 54.7 % (47-80); HEMATOCRIT 46.5 % (42.0-52.0); HEMOGLOBIN 15.8 gm/dl (14.0-18.0); LYMPH % 29.3 % (16-45); MEAN CELL VOLUME 84.2 fl (81-97); MEAN CORPUSCULAR HEMOGLOBIN 28.6 pg (27-33); MEAN PLATELET VOLUME 9.2 fl (7.4-10.4); MONO % 9.9 % (0-9); PLATELET COUNT 279 K/uL (130-400); RED BLOOD COUNT 5.52 M/uL (4.40-5.70); RED CELL DISTRIBUTION WIDTH 13.8 % (11.5-14.5); WHITE BLOOD COUNT W/O DIFF 6.1 K/uL (4.2-12.2)
[2019-01-04 09:42] LABS: BLOOD UREA NITROGEN 14 mg/dL (6-20); CREATININE 0.7 mg/dL (0.7-1.2); EST GLOMERULAR FILTRATION RATE > 60 mL/min
[2019-01-04 09:43] LABS: TOTAL PROTEIN 7.2 g/dL (6.6-8.7)
[2019-01-04 09:45] LABS: GLUCOSE,RANDOM 127 mg/dL (74-109)
[2019-01-04 09:48] LABS: ALB/GLOB RATIO 1.5 (1.1-1.8); ALBUMIN 4.3 g/dL (4.0-5.0); ALKALINE PHOSPHATASE 84 U/L (40-129); ALT/SGPT 27 U/L (<41); AST/SGOT 19 U/L (10.0-50.0); CREATINE PHOSPHOKINASE 98 U/L (39-308)
[2019-01-04 09:53] LABS: CKMB 1.4 ng/mL (<6.73)
[2019-01-04 12:36] LABS: CREATINE PHOSPHOKINASE 95 U/L (39-308)
[2019-01-04 12:41] LABS: CKMB 1.4 ng/mL (<6.73)
--- NOTE | 2019-01-05 12:26 | RADIOLOGY REPORT ---
EXAM: CHEST, TWO VIEWS HISTORY: CHEST PAIN. TECHNIQUE: Two views of the chest were obtained. Comparison: Chest radiograph 12/06/17. FINDINGS: The cardiac silhouette is within normal size limits. No focal pulmonary consolidation. No pleural effusion or pneumothorax. IMPRESSION: NO ACUTE LUNG FINDINGS. JOB NUMBER: [id number] MTDD
== END 2019-01-04 13:13 | disposition home or self-care (01) ==
LOC: ER 08:36
DX: R00.2 Palpitations (principal); R23.2 Flushing; R07.2 Precordial pain; I10 Essential (primary) hypertension; F17.210 Nicotine dependence, cigarettes, uncomplicated
CPT/HCPCS: 71046; 80053; 82550; 82553; 84443; 84484; 85025; 85379; 93005; 93010; 99284

== ENCOUNTER 2019-02-17 19:37 | Emergency (ER) | payer MEDICAID ==
[2019-02-17] MEDS ORDERED: ASPIRIN 81 MG CHEWABLE TABLET PO ONE (19:46)
[2019-02-17] MEDS: NITROGLYCERIN 0.4MG SL TABLET #25 BTL SL PRN ×2 (19:57→20:03)
[2019-02-17 19:58] LABS: ABSOLUTE NEUTROPHIL COUNT 3.01; BASO % 0.3 % (0-6); EOS % 6.1 % (0-6); HEMATOCRIT 43.6 % (42.0-52.0); HEMOGLOBIN 14.9 gm/dl (14.0-18.0); LYMPH % 39.1 % (16-45); MEAN CELL VOLUME 85.7 fl (81-97); MEAN CORPUSCULAR HEMOGLOBIN 29.3 pg (27-33); MEAN CORPUSCULAR HGB CONC 34.2 g/dl (32-36); MEAN PLATELET VOLUME 8.9 fl (7.4-10.4); MONO % 8.5 % (0-9); PLATELET COUNT 280 K/uL (130-400); RED BLOOD COUNT 5.09 M/uL (4.40-5.70); RED CELL DISTRIBUTION WIDTH 13.5 % (11.5-14.5); WHITE BLOOD COUNT W/O DIFF 6.6 K/uL (4.2-12.2)
[2019-02-17] MEDS ORDERED: 0.9 % SODIUM CHLORIDE 1000ML 1,000 ML IV SCH (20:00)
--- NOTE | 2019-02-17 20:01 | Emergency Department Record ---
History of Present Illness - General Chief Complaint: Chest Pain Stated Complaint: CHEST PAINS Time Seen by Provider: 02/17/19 19:45 Source: Patient Mode of Arrival: Ambulatory Limitations: No limitations - History of Present Illness Initial Comments: 43 yo male presents to ED for evaluation of chest pain symptoms that began approximately 90 minutes prior to arrival, reports that he is unable to describe his pain symptoms, rates his pain at 4/10. Patient does report previous history of atrial fibrillation, however this "feels different". Patient denies pain with deep inspiration, denies fevers, chills, or cough symptoms. Patient does report current smoking history. Patient recent ED visit last month for similar symptoms, was discharged following negative ED cardiac evaluation. MD Complaint: Chest pain Onset/Timin -: Hour(s) Pain Location: Substernal Pain Radiation: None Severity: Moderate Severity scale (1-10): 4 Quality: Other Consistency: Constant Improves With: Nothing Worsens With: Nothing Treatments Prior to Arrival: None - Related Data Home Medications Medication Instructions Recorded Confirmed Last Taken Oxycodone HCl/Acetaminophen 1 tab PO TID PRN 02/17/19 02/17/19 02/16/19 [Percocet 7.5mg/325mg] Allergies Allergy/AdvReac Type Severity Reaction Status Date / Time No Known Drug Allergies Allergy Verified 01/04/19 08:45 Travel Screening - Travel/Exposure Within Last 30 Days Have you traveled within the last 30 days?: No - Travel/Exposure Within Last Year Have you traveled outside the [place] in the last year?: No - Additonal Travel Details Have you been exposed to anyone with a communicable illness?: No - Travel Symptoms Symptom Screening: None Review of Systems Constitutional: Denies: Chills, Fever, Malaise, Night sweats Eyes: Denies: Eye discharge, Eye pain ENT: Denies: Congestion, Ear pain, Epistaxis Respiratory: Denies: Cough, Dyspnea Cardiovascular: Reports: Chest pain. Denies: Dyspnea on exertion Endocrine: Denies: Fatigue, Heat or cold intolerance Gastrointestinal: Denies: Abdominal pain, Nausea, Vomiting Genitourinary: Denies: Incontinence, Retention Musculoskeletal: Denies: Arthralgia, Back pain Skin: Denies: Bruising, Change in color Neurological: Denies: Abnormal gait, Confusion, Headache, Seizure Psychiatric: Denies: Anxiety Hematological/Lymphatic: Denies: Anemia, Blood Clots Past Medical History - SOCIAL HISTORY Smoking Status: Current every day smoker Alcohol Use: Occasional Drug Use: None - RESPIRATORY Hx Respiratory Disorders: No - CARDIOVASCULAR Hx Cardio Disorders: Yes Hx Hypertension: Yes Comment:: avery in september 2017 - NEURO Hx Neuro Disorders: No - GI Hx GI Disorders: No - Hx Genitourinary Disorders: No - ENDOCRINE Hx Endocrine Disorders: No - MUSCULOSKELETAL Hx Musculoskeletal Disorders: Yes Hx Back Injury: Yes (oct 01 2016) - PSYCH Hx Psych Problems: Yes Hx Anxiety: Yes - HEMATOLOGY/ONCOLOGY Hx Hematology/Oncology Disorders: No Family Medical History Any Significant Family History?: Yes Hx Cancer: Father, Mother Hx Diabetes: Father, Mother Hx Heart Disease: Father, Mother, Grandparents Hx Kidney Disease: Grandparents Physical Exam - General General Appearance: Alert, Oriented x3, Cooperative, Mild distress Limitations: No limitations - Head Head exam: Atraumatic, Normocephalic, Normal inspection Head exam detail: negative: Abrasion, Contusion, Falcon's sign, General tendern ess, Hematoma, Laceration - Eye Eye exam: Normal appearance. negative: Conjunctival injection, Periorbital swelling, Periorbital tenderness, Scleral icterus - ENT Ear exam: negative: Auricular hematoma, Auricular trauma Nasal Exam: negative: Active bleeding, Discharge, Dried blood, Foreign body Mouth exam: negative: Drooling, Laceration, Muffled voice, Tongue elevation - Neck Neck exam: Normal inspection. negative: Meningismus, Tenderness - Respiratory Respiratory exam: Normal lung sounds bilaterally. negative: Rales, Respiratory distress, Rhonchi, Stridor - Cardiovascular Cardiovascular Exam: Regular rate, Normal rhythm, Normal heart sounds - GI/Abdominal GI/Abdominal exam: Soft. negative: Rebound, Rigid, Tenderness - Rectal Rectal exam: Deferred - exam: Deferred - Extremities Extremities exam: Normal inspection. negative: Pedal edema, Tenderness - Back Back exam: Denies: CVA tenderness (R), CVA tenderness (L) - Neurological Neurological exam: Alert, Normal gait, Oriented X3 - Psychiatric Psychiatric exam: Normal affect, Normal mood - Skin Skin exam: Rash. 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 Awaiting laboratory results for further disposition. 02/17/19 20:25 Laboratory results were reviewed and are grossly unremarkable for an acute process. CXR: No acute process MDM/AMA: Patient was updated on all results, following our discussion re: admission for further cardiac evaluation, patient is declining admission and repeat Troponin to exclude an acute AR. Following discussion with the patient regarding admission, patient reports that they want to leave AMA at this time. Risks of , permanent impairment, or worsening of their current condition were discussed as well as the benefit of admission for further cardiac evaluation and stress testing was discussed. Patient verbalizes understanding of all risks and benefits, desires to leave AMA despite these risks. Based on my examination, the patient is alert, oriented, and answers all questions appropriately. Patient appears to have the capacity to make rational decisions based on my examination. No family members were present for our discussion. Patient was encouraged to return to the ED immediately if they change their mind about treatment and want to be re-evaluated. Patient was counseled to follow-up with his catheter builder (Dr. Lim) in 1-3 days for further evaluation. Medical Decision Making - Lab Data Result diagrams: 02/17/19 19:50 02/17/19 19:50 Disposition Disposition: Discharge Clinical Impression: Chest pain Qualifiers: Chest pain type: unspecified Qualified Code(s): R07.9 - Chest pain, unspecified Disposition: Against Medical Advice Condition: (2) Stable Instructions: Chest Pain (ED) Additional Instructions: Return to ED if your symptoms worsen or if you have any concerns. Continue your home medications as directed. Follow-up with Dr. Guerrier in 1-3 days as directed. Forms: Patient Portal Access Time of Disposition: 20:30 Quality - Quality Measures Quality Measures: N/A - Blood Pressure Screening Does Patient Have Any of the Following: No Blood Pressure Classification: Pre-Hypertensive BP Reading Systolic Measurement: 134 Diastolic Measurement: 80 Screening for High Blood Pressure: < Pre-Hypertensive BP, F/U Documented > [G8950] Pre-Hypertensive Follow-up Interventions: Referral to alternative/primary care provider.
[2019-02-17 20:10] LABS: BLOOD UREA NITROGEN 15 mg/dL (6-20); CREATININE 0.8 mg/dL (0.7-1.2); EST GLOMERULAR FILTRATION RATE > 60 mL/min
[2019-02-17 20:13] LABS: GLUCOSE,RANDOM 106 mg/dL (74-109)
[2019-02-17 20:15] LABS: ALT/SGPT 28 U/L (<41)
[2019-02-17 20:16] LABS: ALB/GLOB RATIO 1.7 (1.1-1.8); ALBUMIN 4.4 g/dL (4.0-5.0); ALKALINE PHOSPHATASE 85 U/L (40-129); AST/SGOT 23 U/L (10.0-50.0)
[2019-02-17] MEDS ORDERED: IBUPROFEN 600 MG TABLET PO ONE (20:22)
--- NOTE | 2019-02-19 07:07 | RADIOLOGY REPORT ---
EXAM: CHEST, TWO VIEWS HISTORY: CHEST PAIN. TECHNIQUE: Two views of the chest are obtained. FINDINGS: The lungs are clear. The cardiac size and pulmonary vascularity are normal. IMPRESSION: NEGATIVE CHEST EXAMINATION. JOB NUMBER: [id number] [facility]
== END 2019-02-17 20:41 | disposition left against medical advice (07) ==
LOC: ER 19:37
DX: R07.2 Precordial pain (principal); I48.91 Unspecified atrial fibrillation; F17.210 Nicotine dependence, cigarettes, uncomplicated
CPT/HCPCS: 71046; 80053; 84484; 85025; 93005; 93010; 99284; J7030